=== PATIENT | male | born 1995 | race African-American/Black ===

== ENCOUNTER 2022-07-03 00:20 | Emergency (ER) | payer BC, OTHER ==
[~2022-07-03] VITALS: Ht 182.9 cm; Wt 89.8 kg
[2022-07-03 01:18] VITALS: BP 137/68
== END 2022-07-03 03:45 | disposition left against medical advice (07) ==
LOC: ER 00:20
DX: Z53.21 Procedure and treatment not carried out due to patient leaving prior to being seen by health care provider (principal)

== ENCOUNTER 2022-12-21 18:35 | Emergency (ER) | payer BC, MEDICAID ==
[~2022-12-21] VITALS: Ht 180.3 cm; Wt 82.0 kg
[2022-12-21 18:41] VITALS: BP 113/75; O2SAT 99
[2022-12-21] MEDS ORDERED: CLINDAMYCIN HCL 150MG CAPSULE PO SCH (19:15)
[2022-12-21] MEDS ORDERED: CLIN-194 MT (20:52)
[2022-12-21 20:58] VITALS: PULSE 87; RESP 16; TEMP 99.3
[2022-12-25 07:13] LABS: HIV SCREEN 4G Non Reactive (Non Reactive)
[2022-12-25 13:07] LABS: CHLAMYDIA TRACHOMATIS NAA Negative (Negative); NEISSERIA GONORRHOEAE NAA Negative (Negative)
== END 2022-12-21 21:00 | disposition home or self-care (01) ==
LOC: ER 18:45
DX: L03.115 Cellulitis of right lower limb (principal)
CPT/HCPCS: 36415; 85379; 86592; 87389; 87491; 87591; 93971; 99284